=== PATIENT | female | born 1965 | race Caucasian/White ===

== ENCOUNTER → 2022-03-27 14:26 | Outpatient (BNVA) | payer OTHER, SELFPAY | PROVIDERS: PCP Internal Medicine; Visit Provider Nurse Practitioner Family | DX: M54.12 Radiculopathy, cervical region (principal); M54.16 Radiculopathy, lumbar region; M62.838 Other muscle spasm; M47.816 Spondylosis without myelopathy or radiculopathy, lumbar region; M47.812 Spondylosis without myelopathy or radiculopathy, cervical region | CPT/HCPCS: 99202 ==

== ENCOUNTER 2022-12-22 12:55 | Outpatient (REF) | payer OTHER, SELFPAY ==
--- NOTE | ~2022-12-22 | XR_ITS ---
EXAMINATION: XR CERVICAL SPINE CLINICAL INFORMATION: Spondylosis without myelopathy or radiculopathy COMPARISON: None available. TECHNIQUE: 6 views of the cervical spine, inclusive of flexion and extension views, were obtained. FINDINGS: There is mild straightening of the cervical lordosis. The vertebral heights and alignment are normal. There is loss of C4-C5, C5-C6 and C6-C7 disc heights with ventral spondylosis. The craniovertebral junction and the C1-C2 alignment is normal. No visible acute fracture, dislocation or subluxation seen. There is moderate narrowing of left C5-C6 and C6-C7 neural foramina from uncovertebral hypertrophic changes. The prevertebral and paravertebral soft tissues are normal. XR/XR cervical spine min 6V IMPRESSION: Degenerative disc changes C4-C5, C5-C6 and C6-C7 disc levels with ventral spondylosis. No visible acute fracture, dislocation or subluxation seen.
== END 2022-12-22 12:56 | disposition home or self-care (01) ==
LOC: HO.XRAY 12:55
PROVIDERS: PCP Internal Medicine; Visit Provider Nurse Practitioner Family
DX: M47.26 Other spondylosis with radiculopathy, lumbar region (principal); M47.22 Other spondylosis with radiculopathy, cervical region; G56.00 Carpal tunnel syndrome, unspecified upper limb; G89.29 Other chronic pain; M62.838 Other muscle spasm
CPT/HCPCS: 72052; 99212

== ENCOUNTER → 2023-01-19 13:11 | Outpatient (BNVA) | payer OTHER, SELFPAY | PROVIDERS: PCP Internal Medicine; Visit Provider Nurse Practitioner Family | DX: M62.838 Other muscle spasm (principal); M54.12 Radiculopathy, cervical region; M47.816 Spondylosis without myelopathy or radiculopathy, lumbar region; M47.812 Spondylosis without myelopathy or radiculopathy, cervical region; G56.00 Carpal tunnel syndrome, unspecified upper limb | CPT/HCPCS: 99212 ==

== ENCOUNTER 2023-03-14 09:19 | Outpatient (REF) | payer OTHER, SELFPAY ==
--- NOTE | 2023-03-14 09:23 | EMG_ITS ---
Please see scanned EMG / Nerve Conduction Report. MTDD
== END 2023-03-14 09:20 | disposition home or self-care (01) ==
LOC: HO.NEURO 09:19
PROVIDERS: PCP Internal Medicine; Visit Provider Nurse Practitioner Family
DX: G56.03 Carpal tunnel syndrome, bilateral upper limbs (principal)
CPT/HCPCS: 95885; 95910

== ENCOUNTER 2023-03-16 09:10 | Outpatient (AMB) | payer OTHER, SELFPAY ==
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
[2023-03-16 09:12] VITALS: BMI 32.8
== END 2023-03-16 09:11 | disposition home or self-care (01) ==
LOC: HO.PMC 09:11
PROVIDERS: PCP Internal Medicine; Visit Provider Nurse Practitioner Family
DX: M47.812 Spondylosis without myelopathy or radiculopathy, cervical region (principal); M54.12 Radiculopathy, cervical region; M62.838 Other muscle spasm
CPT/HCPCS: 99213

== ENCOUNTER → 2023-03-16 09:10 | Outpatient (BNVA) | payer OTHER, SELFPAY | PROVIDERS: PCP Internal Medicine; Visit Provider Nurse Practitioner Family ==

== ENCOUNTER 2023-10-11 15:22 | Outpatient (AMB) | payer OTHER, SELFPAY ==
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
[2023-10-11 15:28] VITALS: BP 185/93; PULSE 54; O2SAT 97; BMI 32.9
== END 2023-10-11 15:42 | disposition home or self-care (01) ==
PROVIDERS: PCP Internal Medicine; Visit Provider Nurse Practitioner Family
DX: M47.816 Spondylosis without myelopathy or radiculopathy, lumbar region (principal); M54.16 Radiculopathy, lumbar region; M47.812 Spondylosis without myelopathy or radiculopathy, cervical region; M54.12 Radiculopathy, cervical region; M62.838 Other muscle spasm
CPT/HCPCS: 99214

== ENCOUNTER → 2023-10-11 15:22 | Outpatient (BNVA) | payer OTHER, SELFPAY | PROVIDERS: PCP Internal Medicine; Visit Provider Nurse Practitioner Family | DX: M47.816 Spondylosis without myelopathy or radiculopathy, lumbar region (principal); M54.16 Radiculopathy, lumbar region; M47.812 Spondylosis without myelopathy or radiculopathy, cervical region; M54.12 Radiculopathy, cervical region; M62.838 Other muscle spasm | CPT/HCPCS: 99212 ==

== ENCOUNTER 2024-03-17 13:39 | Outpatient (AMB) | payer OTHER, SELFPAY ==
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
[2024-03-17 13:47] VITALS: BP 167/94; PULSE 76; O2SAT 96; BMI 32.8
== END 2024-03-17 14:05 | disposition home or self-care (01) ==
PROVIDERS: PCP Internal Medicine; Visit Provider Nurse Practitioner Family
DX: M53.3 Sacrococcygeal disorders, not elsewhere classified (principal); M47.816 Spondylosis without myelopathy or radiculopathy, lumbar region; M54.16 Radiculopathy, lumbar region; M47.812 Spondylosis without myelopathy or radiculopathy, cervical region; M54.12 Radiculopathy, cervical region; M62.838 Other muscle spasm
CPT/HCPCS: 99214

== ENCOUNTER → 2024-03-17 13:39 | Outpatient (BNVA) | payer OTHER, SELFPAY | PROVIDERS: PCP Internal Medicine; Visit Provider Nurse Practitioner Family | DX: M53.3 Sacrococcygeal disorders, not elsewhere classified (principal); M47.26 Other spondylosis with radiculopathy, lumbar region; M47.22 Other spondylosis with radiculopathy, cervical region; M62.838 Other muscle spasm; G56.00 Carpal tunnel syndrome, unspecified upper limb | CPT/HCPCS: 99212 ==

== ENCOUNTER 2024-10-16 14:28 | Outpatient (REF) | payer OTHER, SELFPAY ==
--- NOTE | ~2024-10-16 | XR_ITS ---
CLINICAL HISTORY: M53.3 - Sacrococcygeal disorders, not elsewhere classified 3 views sacroiliac joints Comparison: None Findings No acute fractures. No significant degenerative change. No erosions. IMPRESSION: No acute findings This document has been electronically signed by: Brian Joseph MD on 10/17/2024 11:13:58
--- OUTSIDE RECORDS SUMMARY | 2024-10-16 17:42 | XMS_ITS | Encounter Summary ---
Author Organization [facility] Address [address] [facility] [place] [address] Care Team Providers Care Chain Forming Machine Operator Name Role Phone Robbie Mckenzie MD Primary Care Provider [phone] Encounter Details Date Type Department Care Team Description 10/11/2023 Tightener Report Medical Records [address] [place] [address] Amy Torres NP Social History Tobacco Use Types Packs/Day Years Used Date Smoking Tobacco: Former Cigarettes 1 35 Smokeless Tobacco: Former Comments:chantix Alcohol Use Standard Drinks/Week Comments Yes 0 (1 standard drink = 0.6 oz pur e alcohol) 1 drink on special occasions Sex Assigned at Date Recorded Not on file Job Start Date Occupation Industry Not on file Not on file Not on file documented as of this encounter Plan of Treatment Not on file documented as of this encounter Visit Diagnoses Not on filedocumented in this encounter Additional Health Concerns Infection Onset Date Last Indicated Resolved Time COVID-19 07/23/2023 07/23/2023 documented as of this encounter Care Teams Chain Forming Machine Operator Relationship Specialty Start Date End Date Robbie Mckenzie MD [address] [place], [place] [phone] PCP - General 05/03/09 documented as of this encounter
--- OUTSIDE RECORDS SUMMARY | 2024-10-16 17:42 | XMS_ITS | Encounter Summary ---
Author Organization [facility] Address [address] [place] [address] Care Team Providers Care Chute Boss Name Role Phone Robbie Mckenzie MD Primary Care Provider [phone] Encounter Details Date Type Department Care Team Description 08/07/2018 Orders Only Medical Records [address] [place] [address] Ap Barrera MD [address] [place] [address] [address] [place] [address] Social History Tobacco Use Types Packs/Day Years [...] on file documented as of this encounter Procedures Procedure Name Priority Date/Time Associated Diagnosis Comments OUTSIDE PLAIN FILM Routine 08/06/2018 documented in this encounter Results * OUTSIDE PLAIN FILM (08/06/2018) Ap Barrera MD RADIOLOGY documented in this encounter Visit Diagnoses Not on filedocumented in this encounter Additional Health Concerns Infection Onset Date Last Indicated Resolved Time COVID-19 07/23/2023 07/23/2023 documented as of this encounter Care Teams Chute Boss Relationship Specialty Start Date End Date Robbie Mckenzie MD [address] [place] [address] PCP - General 05/03/09 documented as of this encounter
--- OUTSIDE RECORDS SUMMARY | 2024-10-16 17:42 | XMS_ITS | Clinical Summary ---
Author Organization [address] Address [address] [place] [phone] Phone Care Team Providers Care Pickle Solution Maker Name Role Phone Robbie Mckenzie MD Primary Care Provider [phone] Allergies No known active allergies Medications cloNIDine (CATAPRES) 0.2 mg tablet Take 1 tablet by mouth twice daily 180 tablet 1 4 Active lisinopril (PRINIVIL,ZESTR IL) 40 mg tablet Take 1 tablet by mouth once daily 90 tablet 1 4 Active celecoxib (CeleBREX) 200 mg capsule TAKE 1 CAPSULE BY MOUTH TWICE DAILY NEEDED FOR PAIN 4 Active cloNIDine (CATAPRES) 0.2 mg tablet Take 1 tablet (0.2 mg total) by mouth 2 (two) times a day. Active gabapentin (NEURONTIN) 300 mg capsule Take 1 capsule (300 mg total) by mouth at bedtime. Active ibuprofen (ADVIL,MOTRIN) 600 mg tablet 4 Active lidocaine (LIDODERM) 5 % patch USE 1 PATCH TOPICALLY ONCE DAILY FOR PAIN. APPLY FOR 12 HOURS ON AND 12 HOURS OFF. 4 Active lisinopril (PRINIVIL,ZESTR IL) 40 mg tablet Take 1 tablet (40 mg total) by mouth 1 (one) time each day. Active simvastatin (ZOCOR) 20 mg tablet Take 1 tablet (20 mg total) by mouth at bedtime. 4 Active tiZANidine (ZANAFLEX) 4 mg tablet Take 1 tablet (4 mg total) by mouth every 8 (eight) hours if needed. 2 Active traMADoL (ULTRAM) 50 mg tablet Take 1 tablet (50 mg total) by mouth every 8 (eight) hours if needed. for pain Max Daily Amount: 150 mg 4 Active triamterene-hyd roCHLOROthiazid e (MAXZIDE) 75-50 mg per tablet Take 1 tablet by mouth 1 (one) time each day. For 180 days 4 10/29/19 25 Active ibuprofen (ADVIL,MOTRIN) 600 mg tablet Take 1 Tablet by mouth every 6 hours as needed for Pain. 4 Active NIRMATRELVIR-RI TONAVIR ORAL Nirmatrelvir&R itonavir 300/100 20 x 150 MG & 10 x 100MG Tablet Therapy Pack 1 Each 0 07/24/2023 Sig - Route: Take 3 Tablets by mouth 2 times daily. - Oral Active predniSONE (DELTASONE) 20 mg tablet Si tabs po x 3 days then 2 tabs po x 3 days then one tab po x 3 days Active Active Problems Problem Noted Date Diagnosed Date Scoliosis 07/22/2024 COVID 07/24/2023 Prediabetes 06/24/2021 Cervical radiculitis 08/19/2020 Chronic back pain 08/19/2020 Hyperlipidemia 06/13/2017 Obesity (BMI 30.0-34.9) 08/27/2014 HTN (hypertension) 07/10/2014 Immunizations Name Administration Dates Next Due Influenza Quadravalent, MDCK , 0.5ml, preservative free (Flucelvax) 6mo and older 06/09/2022,06/24/2021,08/19/2020 Influenza trivalent, with pr eservative (Fluzone; Afluria) 6mo and older 06/26/2014 Tdap Tetanus diptheria acell ular pertussis (Boostrix; Adacel) 7yo and older 11/08/2016 Surgical History Surgery Date Site/Laterality Comments APPENDECTOMY PROCEDURE: HISTORICAL APPENDECTOMY TONSILLECTOMY PROCEDURE: HISTORICAL TONSILLECTOMY WISDOM TOOTH EXTRACTION PROCEDURE: HISTORICAL WISDOM TEETH EXTRACTION Medical History Medical History Date Comments Scoliosis DX:Scoliosis HTN (hypertension) 07/10/2014 DX:HTN (hyper tension) Morbid obesity (CMS/HCC) 08/27/2014 DX:Morb id obesity (HCC) Family History Medical History Relation Name Comments Hypertension Maternal Grandmother Diabetes Mother Stroke Mother Diabetes Sister 1 Hypertension Sister 2 Relation Name Status Comments Maternal Grandmother Mother Sister 1 Sister 2 Social History Tobacco Use Types Packs/Day Years Used Date Smoking Tobacco: Former Cigarettes Smokeless Tobacco: Never Alcohol Use Standard Drinks/Week Comments Yes 0 (1 standard drink = 0.6 oz pur e alcohol) Comments Unknown Sex and Gender Information Value Date Recorded Sex Assigned at Not on file Legal Sex Female 3:26 AM EST Gender Identity Not on file Sexual Orientation Not on file Obstetrics History Last Filed Vital Signs Vital Sign Reading Time Taken Comments Blood Pressure 122/88 05/01/2024 10:56 AM EDT Pulse 76 05/01/2024 10:34 AM EDT Temperature - - Respiratory Rate - - Oxygen Saturation - - Inhaled Oxygen Concentration - - Weight 92.5 kg (203 lb 14.4 oz) 024 10:34 AM EDT Height 167.6 cm (5' 6 ) 05/01/2024 10:3 4 AM EDT Body Mass Index 32.91 05/01/2024 10:34 AM EDT Plan of Treatment Upcoming Encounters Date Type Department Care Team (Late st Contact Info) Description 11/18/2024 3:45 PM EDT Office Visit Adult Medicine [address] [phone] Robbie Mckenzie MD [address] [place] [phone] Health Maintenance Due Date Last Done Comments Breast Cancer Screening 1966 Hepatitis B Vaccines (1 of 3 - 19+ 3-dose series) 1985 Cervical Cancer Screening: Pap Smear 1987 Pneumococcal Vaccine: 50+ Years (1 of 1 - PCV) 2016 Zoster Vaccines (1 of 2) 2016 Colorectal Cancer Screening: Stool Based Tests (FOBT/FIT) 07/29/2022 Depression Screening 07/29/2022 HIV Screening 07/29/2022 Social Influencers of Health Screening 07/29/2022 COVID-19 Vaccine ( season) 2024 06/15/2022, 01/12/2022, 07/11/2021, Additional history exists Influenza Vaccine (#1) 2024 2, 06/24/2021, 08/19/2020, Additional history exists Hypertension/CHF/CAD Annual BMP Blood Test 07/02/2025 07/02/2024, 11/22/2023 DTaP,Tdap,and Td Vaccines (2 - Td or Tdap) 11/08/2026 11/08/2016 Cholesterol Screening (Lipid Panel) 07/02/2029 07/02/2024, 11/22/2023 Hepatitis C Screening Completed 02/07/2018 HIB Vaccines Aged Out No longer eligi ble based on patient's age to complete this topic HPV Vaccines Aged Out No longer eligi ble based on patient's age to complete this topic Hepatitis A Vaccines Aged Out No long er eligible based on patient's age to complete this topic IPV Vaccines Aged Out No longer eligi ble based on patient's age to complete this topic MMR Vaccines Aged Out No longer eligi ble based on patient's age to complete this topic Meningococcal ACWY Vaccine Aged Out N o longer eligible based on patient's age to complete this topic Meningococcal B Vacine Aged Out No lo nger eligible based on patient's age to complete this topic Pneumococcal Vaccine: Pediatrics (0 to 5 Years) and At-Risk Patients (6 to 64 Years) Aged Out No longer eligible based on patient's age to complete this topic RSV Immunization Patients Under 20 months Aged Out No longer eligible based on patient's age to complete this topic Varicella Vaccines Aged Out No longer eligible based on patient's age to complete this topic Procedures Procedure Name Priority Date/Time Associated Diagnosis Comments BASIC METABOLIC PANEL Routine 07/02/2024 4:54 PM EST Pre-diabetes Hyperlipemia Hypertension LIPID PANEL WITH REFLEX TO DIRECT LDL Routine 07/02/2024 4:54 PM EST Pre-diabetes Hyperlipemia Hypertension HM HEPATITIS C SCREENING Routine 02/07/2018 from Last 3 Months or Most Recently Relevant to Health Maintenance Results * (ABNORMAL) Lipid panel with reflex to direct LDL (07/02/2024 4:54 PM EST) Cholesterol 187 0 - 200 mg/dL LAB CHEMISTRY METHOD 07/02/2024 6:57 PM EST [facility] Triglycerides 229(H) 0 - 150 mg/dL LAB CHEMISTRY METHOD 07/02/2024 6:57 PM [facility] HDL 45 >=40 mg/dL LAB CHEMISTRY METHOD 07/02/2024 6:57 PM [facility] LDL Calculated 96 0 - 100 mg/dL LAB CHEMISTRY METHOD 07/02/2024 6:57 PM EST [facility] VLDL Cholesterol Jamaal 45.8 mg/dL LAB CHEMISTRY METHOD 07/02/2024 6:57 PM [facility] Non HDL Chol. (LDL+VLDL) 142 <145 mg/dL LAB CHEMISTRY METHOD 07/02/2024 6:57 PM [facility] Chol/HDL Ratio 4.2 0.0 - 4.4 LAB CHEMISTRY METHOD 07/02/2024 6:57 PM [facility] Blood Venous blood specimen / Unknown Venipuncture / Unknown 07/02/2024 4:54 PM EST 07/02/2024 4:54 PM EST Klaudia HUA LAB BLOOD ORDERABLES Fi nal Result [facility] [address] [place] [address], * (ABNORMAL) Basic metabolic panel (07/02/2024 4:54 PM EST) [facility] Sodium 141 133 - 145 mmol/L LAB CHEMISTRY METHOD 07/02/2024 6:57 PM [facility] Potassium 3.9 3.5 - 5.5 mmol/L LAB CHEMISTRY METHOD 07/02/2024 6:57 PM [facility] Chloride 106 96 - 110 mmol/L LAB CHEMISTRY METHOD 07/02/2024 6:57 PM [facility] CO2 26 21 - 32 mmol/L LAB CHEMISTRY METHOD 07/02/2024 6:57 PM [facility] Anion Gap 9 3 - 11 LAB CHEMISTRY METHOD 07/02/2024 6:57 PM [facility] Glucose 130(H) 70 - 100 mg/dL LAB CHEMISTRY METHOD 07/02/2024 6:57 PM [facility] BUN 12 5 - 25 mg/dL LAB CHEMISTRY METHOD 07/02/2024 6:57 PM [facility] Creatinine 1.03 0.50 - 1.10 mg/dL LAB CHEMISTRY METHOD 07/02/2024 6:57 PM [facility] eGFR 63 >=60 mL/min/1. 73m2 LAB CHEMISTRY METHOD 07/02/2024 6:57 PM [facility] Comment:Calculation based on the??Chronic Kidney Disease Epidemiology Collaboration (CKD-EPI) equation refit??without adjustment for race. BUN/Creatinine Ratio 11.7 LAB CHEMISTRY METHOD 07/02/2024 6:57 PM [facility] Calcium 9.2 8.5 - 10.5 mg/dL LAB CHEMISTRY METHOD 07/02/2024 6:57 PM [facility] Blood Venous blood specimen / Unknown Venipuncture / Unknown 07/02/2024 4:54 PM EST 07/02/2024 4:54 PM EST Klaudia HUA LAB BLOOD ORDERABLES Fi nal Result [facility] [address] [place] [address], * Hepatitis C Screening (02/07/2018) Pathologist [facility] Hepatitis C Screening abstracted Historical Provider HEALTH MAINTENANCE Final Result from Last 3 Months or Most Recently Relevant to Health Maintenance Insurance [facility] Care Teams Pickle Solution Maker Relationship Specialty Start Date End Date Robbie Mckenzie MD PCP - General 05/03/09
--- OUTSIDE RECORDS SUMMARY | 2024-10-16 17:42 | XMS_ITS | Encounter Summary ---
Author Organization [facility] Address [address] [place] [address] Care Team Providers Care In Store Marketing Associate Name Role Phone Robbie Mckenzie MD Primary Care Provider [phone] Encounter Details Date Type Department Care Team Description 01/10/2022 Telephone Adult Medicine [address] [address] Perla Buck PA-C Social History Tobacco Use Types Packs/Day Years Used Date Smoking Tobacco: Former Cigarettes 1 35 Smokeless Tobacco: Former Comments:chantix Alcohol Use Standard Drinks/Week Comments Yes 0 (1 standard drink = 0.6 oz pur e alcohol) 1 drink on special occasions Sex Assigned at Date Recorded Not on file Job Start Date Occupation Industry Not on file Not on file Not on file COVID-19 Exposure Response Date Recorded In the last 10 days, have yo u been in contact with someone who was confirmed or suspected to have Coronavirus/COVID-19? No / Unsure 12/27/2021 3:42 PM EDT documented as of this encounter Miscellaneous Notes * Telephone Encounter - Lara Rodríguez - 01/10/2022 11:34 AM EDT Please see original message dated 12/28/21 Patient returning phone call - can be reached at [phone] documented in this encounter Plan of Treatment Not on file documented as of this encounter Visit Diagnoses Not on filedocumented in this encounter Additional Health Concerns Infection Onset Date Last Indicated Resolved Time COVID-19 07/23/2023 07/23/2023 documented as of this encounter Care Teams In Store Marketing Associate Relationship Specialty Start Date End Date Robbie Mckenzie MD [address] [place] [id number] PCP - General 05/03/09 documented as of this encounter
--- OUTSIDE RECORDS SUMMARY | 2024-10-16 17:42 | XMS_ITS | Encounter Summary ---
Author Organization [facility] Address [address] [place] [address] Care Team Providers Care Stylist Apprentice Name Role Phone Robbie Mckenzie MD Primary Care Provider [phone] Reason for Visit * Reason Onset Date Comments Medication 09/22/2021 Encounter Details Date Type Department Care Team Description 09/22/2021 Refill Gastroenterology - [address] [place] [phone] Jackie Diego MD Medication Social History Tobacco Use Types Packs/Day Years [...] documented as of this encounter Care Teams Stylist Apprentice Relationship Specialty Start Date End Date Robbie Mckenzie MD [address] [place] [address] PCP - General 05/03/09 documented as of this encounter
--- OUTSIDE RECORDS SUMMARY | 2024-10-16 17:42 | XMS_ITS | Encounter Summary ---
Author Organization [facility] Address [address] [place] [address] Care Team Providers Care Escapement Matcher Name Role Phone Robbie Mckenzie MD Primary Care Provider [phone] Reason for Visit * Reason Comments E-prescribe Rx Request Encounter Details Date Type Department Care Team Description 10/13/2020 Refill Adult Medicine [address] [address] Natalie Anderson PA E-prescribe Rx Request Social History Tobacco Use Types Packs/Day Years [...] Exposure Response Date Recorded In the last month, have you been in contact with someone who was confirmed or suspected to have Coronavirus / COVID-19? Unable to assess 09/22/2020 8:52 AM EST documented as of this encounter Miscellaneous Notes * Telephone Encounter - David Becerra C.M.A. - 10/14/2020 10:38 AM EST Script faxed to pharmacy. Message left for patient to return my call, needs appt. * Telephone Encounter - Paulina Tracy PA-C - 10/13/2020 4:05 PM EST Overdue for routine evaluation. Paulina Tracy PA-C * Telephone Encounter - Lila Acevedo - 10/13/2020 3:56 PM EST Ov 08/19/20 Lab Results Component Value Date NA 140 08/19/2020 K 4.2 08/19/2020 CO2 28 08/19/2020 CL 104 08/19/2020 BUN 12 08/19/2020 CREAT 0.94 08/19/2020 GLU 105 08/19/2020 CA 9.4 08/19/2020 GFR > 60 08/19/2020 * Telephone Encounter - Ramya Bañuelos - 10/13/2020 3:27 PM EST Patient would like script to be: E-PRESCRIBED/FAXED TO PHARMACY WHEN WAS THE PATIENT'S LAST APPOINTMENT IN ADULT MEDICINE? 08/19/20 WHEN WAS THE LAST TIME THE PATIENT SAW THEIR PCP? 01/24/19 Does patient have an upcoming appointment? No (THE MEDICATION REQUESTED IS ON THE MED LIST ABOVE) All of the medications requested were on the CURRENT MEDS list Did you check the Pharmacy information above?: YES Patient wants: 90 -day supply Is this a mail order prescription request ? NO If the refill is from a FAXED refill request what is the RX # listed on the fax? N/A Patients current insurance carrier is: Payor: [employer] FFS / Plan: [employer]IANCE / Product Type: MEDICAID RISK documented in this encounter Plan of Treatment Not on file documented as of this encounter Visit Diagnoses Diagnosis Essential hypertension Unspecified essential hypertension documented in this encounter Additional Health Concerns Infection Onset Date Last Indicated Resolved Time COVID-19 07/23/2023 07/23/2023 documented as of this encounter Care Teams Escapement Matcher Relationship Specialty Start Date End Date Robbie Mckenzie MD [address] [place] [id number] PCP - General 05/03/09 documented as of this encounter
--- OUTSIDE RECORDS SUMMARY | 2024-10-16 17:42 | XMS_ITS | Encounter Summary ---
Author Organization [facility] Address [address] [facility] [place] [address] Care Team Providers Care Heating And Refrigeration Inspector Name Role Phone Robbie Mckenzie MD Primary Care Provider [phone] Encounter Details Date Type Department Care Team Description 02/07/2019 Orders Only Adult Medicine [facility] [address] [place] [address] Robbie Mckenzie MD [address] [place] [phone] Elevated blood sugar (Primary Dx) Social History Tobacco Use Types Packs/Day Years [...] as of this encounter Plan of Treatment Scheduled Orders Name Type Priority Associated Diagnoses Orde r Schedule HEMOGLOBIN A1C Lab Routine Elevated blood sugar Expected: 02/07/2019, Expires: 02/07/2020 documented as of this encounter Visit Diagnoses Diagnosis Elevated blood sugar- Primary Other abnormal glucose documented in this encounter Additional Health Concerns Infection Onset Date Last Indicated Resolved Time COVID-19 07/23/2023 07/23/2023 documented as of this encounter Care Teams Heating And Refrigeration Inspector Relationship Specialty Start Date End Date Robbie Mckenzie MD [address] [place] [address] PCP - General 05/03/09 documented as of this encounter
--- OUTSIDE RECORDS SUMMARY | 2024-10-16 17:42 | XMS_ITS | Encounter Summary ---
Author Organization [facility] Address [address] [place] [address] Care Team Providers Care College Intern Name Role Phone Robbie Mckenzie MD Primary Care Provider [phone] Reason for Visit * Reason Onset Date Comments Prior Authorization 01/26/2021 Lyrica Encounter Details Date Type Department Care Team Description 01/26/2021 Pt. Non Urgent Medic al Question Adult Medicine [address] [address] Natalie Anderson PA Social History Tobacco Use Types Packs/Day Years [...] on file documented as of this encounter Miscellaneous Notes * Telephone Encounter - Meli Perez M.A. - 01/26/2021 10:11 AM EDTFrom: James Wetzel Jovanny To: Rachael Sexton Sent: 01/26/2021 10:04 AM EDT Subject: Medication Good morning Natalie, The Lyrica you prescribed for me still hasn't come through, I called the pharmacy and they said they had to get prior approval from my Dr, not sure what that means, but anyway, if there's anything you can do on your end I would really appreciate it, my back has gotten much worse, now I'm needing help getting in a nd out of bed, and help sitting up, I'm worried and the muscle relaxers aren't doingmuch but help me sleep, anyway thanks a bunch. documented in this encounter Plan of Treatment Not on file documented as of this encounter Visit Diagnoses Not on filedocumented in this encounter Additional Health Concerns Infection Onset Date Last Indicated Resolved Time COVID-19 07/23/2023 07/23/2023 documented as of this encounter Care Teams College Intern Relationship Specialty Start Date End Date Robbie Mckenzie MD [address] [place] [address] PCP - General 05/03/09 documented as of this encounter
--- OUTSIDE RECORDS SUMMARY | 2024-10-16 17:42 | XMS_ITS | Encounter Summary ---
Author Organization [facility] Address [address] [facility] [place] [address] Care Team Providers Care Quill Stripper Name Role Phone Robbie Mckenzie MD Primary Care Provider [phone] Encounter Details Date Type Department Care Team Description 11/22/2023 Release of Information Medical Records [address] [place] [id number] Abstract, Provider Social History Tobacco Use Types Packs/Day Years Used Date Smoking Tobacco: Former Cigarettes 1 35 Smokeless Tobacco: Never Comments:chantix Alcohol Use Standard Drinks/Week Comments Yes [...] documented as of this encounter Care Teams Quill Stripper Relationship Specialty Start Date End Date Robbie Mckenzie MD [address] [place], [place] [phone] PCP - General 05/03/09 documented as of this encounter
--- OUTSIDE RECORDS SUMMARY | 2024-10-16 17:42 | XMS_ITS | Encounter Summary ---
Author Organization [facility] Address [address] [facility] [place] [address] Care Team Providers Care Coconut Candy Maker Name Role Phone Robbie Mckenzie MD Primary Care Provider [phone] Encounter Details Date Type Department Care Team Description 09/11/2018 Release of Information Medical Records [address] [place] [id number] Abstract, Provider Social History Tobacco Use Types [...] documented as of this encounter Care Teams Coconut Candy Maker Relationship Specialty Start Date End Date Robbie Mckenzie MD [address] [place], [place] [phone] PCP - General 05/03/09 documented as of this encounter
--- OUTSIDE RECORDS SUMMARY | 2024-10-16 17:42 | XMS_ITS | Encounter Summary ---
Author Organization [facility] Address [address] [place] [address] Care Team Providers Care Kettle Cook Name Role Phone Robbie Mckenzie MD Primary Care Provider [phone] Encounter Details Date Type Department Care Team Description 03/23/2020 Emt Intermediate Report Medical Records [address] [place] [address] Abstract, Provider Social History Tobacco Use Types [...] documented as of this encounter Care Teams Kettle Cook Relationship Specialty Start Date End Date Robbie Mckenzie MD [address] [place], [place] [phone] PCP - General 05/03/09 documented as of this encounter
--- OUTSIDE RECORDS SUMMARY | 2024-10-16 17:43 | XMS_ITS | Encounter Summary ---
Author Organization [facility] Address [address] [place] [address] Care Team Providers Care Rug Weaver Name Role Phone Robbie Mckenzie MD Primary Care Provider [phone] Reason for Visit * Reason Comments E-prescribe Rx Request Encounter Details Date Type Department Care Team Description 01/16/2022 Refill Adult Medicine [address] [id number] Perla Buck PA-C E-prescribe Rx Request Social History Tobacco Use [...] Recorded In the last 10 days, have tree melara been in contact with someone who was confirmed or suspected to have Coronavirus/COVID-19? No / Unsure 12/27/2021 3:42 PM EDT documented as of this encounter Plan of Treatment Not on file documented as of this encounter Visit Diagnoses Not on filedocumented in this encounter Additional Health Concerns Infection Onset Date Last Indicated Resolved Time COVID-19 07/23/2023 07/23/2023 documented as of this encounter Care Teams Rug Weaver Relationship Specialty Start Date End Date Robbie Mckenzie MD [address] [place] [phone] PCP - General 05/03/09 documented as of this encounter
--- OUTSIDE RECORDS SUMMARY | 2024-10-16 17:43 | XMS_ITS | Encounter Summary ---
Author Organization [facility] Address [address] [facility] [place] [address] Care Team Providers Care Tearoom Host/Hostess Name Role Phone Robbie Mckenzie MD Primary Care Provider [phone] Encounter Details Date Type Department Care Team Description 07/17/2018 Transfer Records Medical Records [address] [place] [address] Abstract, Provider Social History Tobacco Use Types Packs/Day Years Used Date Smoking Tobacco: Every Day Cigarettes 1 35 Smokeless Tobacco: Current Comments:chantix Alcohol Use Standard Drinks/Week Comments Yes [...] documented as of this encounter Care Teams Tearoom Host/Hostess Relationship Specialty Start Date End Date Robbie Mckenzie MD [address] [place], [place] [phone] PCP - General 05/03/09 documented as of this encounter
--- OUTSIDE RECORDS SUMMARY | 2024-10-16 17:43 | XMS_ITS | Encounter Summary ---
Author Organization [facility] Address [address] [facility] [place] [address] Care Team Providers Care It Specialist Name Role Phone Robbie Mckenzie MD Primary Care Provider Encounter Details Date Type Department Care Team Description 03/01/2022 Release of Information Medical Records [address] [place] [address] [place] [address] Abstract, Provider Social History Tobacco Use Types [...] documented as of this encounter Care Teams It Specialist Relationship Specialty Start Date End Date Robbie Mckenzie MD [address] [place], [place] [phone] PCP - General 05/03/09 documented as of this encounter
== END 2024-10-16 14:29 | disposition home or self-care (01) ==
LOC: HO.XRAY 14:28
PROVIDERS: PCP Internal Medicine; Visit Provider Nurse Practitioner Family
DX: M47.816 Spondylosis without myelopathy or radiculopathy, lumbar region (principal); M53.3 Sacrococcygeal disorders, not elsewhere classified; M62.838 Other muscle spasm; M54.50 Low back pain, unspecified; M47.812 Spondylosis without myelopathy or radiculopathy, cervical region; G89.29 Other chronic pain
CPT/HCPCS: 72202; 99212

== ENCOUNTER → 2024-10-16 14:33 | Outpatient (BNV) | payer OTHER, SELFPAY | PROVIDERS: PCP Internal Medicine; Visit Provider Radiology Diagnostic Radiology | DX: M53.3 Sacrococcygeal disorders, not elsewhere classified (principal) | CPT/HCPCS: 72202 ==

== ENCOUNTER 2024-10-16 15:23 | Outpatient (AMB) | payer OTHER, SELFPAY ==
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
[2024-10-16 15:28] VITALS: BP 180/98; PULSE 80; O2SAT 97; BMI 33.2
[2024-10-16 15:48] VITALS: BP 136/101
--- OUTSIDE RECORDS SUMMARY | 2024-10-16 18:43 | XMS_ITS | Clinical Summary ---
Author Organization [address] Address [address] [place] [phone] Phone Care Team Providers Care Stereo Compiler Name Role Phone Robbie Mckenzie MD Primary Care Provider [phone] Allergies No known active allergies Medications cloNIDine [...] 3:45 PM EDT Office Visit Adult Medicine [address] [phone] Robbie Mckenzie MD [address] [place] [phone] Health Maintenance Due Date Last Done Comments [...] LAB CHEMISTRY METHOD 07/02/2024 6:57 PM EST [facility] Triglycerides 229(H) 0 - 150 mg/dL LAB CHEMISTRY METHOD 07/02/2024 6:57 PM [facility] HDL 45 >=40 mg/dL LAB CHEMISTRY METHOD 07/02/2024 6:57 PM [facility] LDL Calculated 96 0 - 100 mg/dL LAB CHEMISTRY METHOD 07/02/2024 6:57 PM EST [facility] VLDL Cholesterol Jamaal 45.8 mg/dL LAB CHEMISTRY METHOD 07/02/2024 6:57 PM [facility] Non HDL Chol. (LDL+VLDL) 142 <145 mg/dL LAB CHEMISTRY METHOD 07/02/2024 6:57 PM [facility] Chol/HDL Ratio 4.2 0.0 - 4.4 LAB CHEMISTRY METHOD 07/02/2024 6:57 PM [facility] Blood Venous blood specimen / Unknown Venipuncture / Unknown 07/02/2024 4:54 PM EST 07/02/2024 4:54 PM EST Klaudia HUA LAB BLOOD ORDERABLES Fi nal Result [facility] [address] [place] [address], * (ABNORMAL) Basic metabolic panel (07/02/2024 4:54 PM EST) [facility] Sodium 141 133 - 145 mmol/L LAB CHEMISTRY METHOD 07/02/2024 6:57 PM [facility] Potassium 3.9 3.5 - 5.5 mmol/L LAB CHEMISTRY METHOD 07/02/2024 6:57 PM [facility] Chloride 106 96 - 110 mmol/L LAB CHEMISTRY METHOD 07/02/2024 6:57 PM [facility] CO2 26 21 - 32 mmol/L LAB CHEMISTRY METHOD 07/02/2024 6:57 PM [facility] Anion Gap 9 3 - 11 LAB CHEMISTRY METHOD 07/02/2024 6:57 PM [facility] Glucose 130(H) 70 - 100 mg/dL LAB CHEMISTRY METHOD 07/02/2024 6:57 PM [facility] BUN 12 5 - 25 mg/dL LAB CHEMISTRY METHOD 07/02/2024 6:57 PM [facility] Creatinine 1.03 0.50 - 1.10 mg/dL LAB CHEMISTRY METHOD 07/02/2024 6:57 PM [facility] eGFR 63 >=60 mL/min/1. 73m2 LAB CHEMISTRY METHOD 07/02/2024 6:57 PM [facility] Comment:Calculation based on the??Chronic Kidney Disease Epidemiology Collaboration (CKD-EPI) equation refit??without adjustment for race. BUN/Creatinine Ratio 11.7 LAB CHEMISTRY METHOD 07/02/2024 6:57 PM [facility] Calcium 9.2 8.5 - 10.5 mg/dL LAB CHEMISTRY METHOD 07/02/2024 6:57 PM [facility] Blood Venous blood specimen / Unknown Venipuncture / Unknown 07/02/2024 4:54 PM EST 07/02/2024 4:54 PM EST Klaudia HUA LAB BLOOD ORDERABLES Fi nal Result [facility] [address] [place] [address], * Hepatitis C Screening (02/07/2018) Pathologist [facility] Hepatitis C Screening abstracted Historical Provider HEALTH MAINTENANCE Final Result from Last 3 Months or Most Recently Relevant to Health Maintenance Insurance [facility] [employer] Care Teams Stereo Compiler Relationship Specialty Start Date End Date Robbie Mckenzie MD PCP - General 05/03/09
== END 2024-10-16 15:47 | disposition home or self-care (01) ==
PROVIDERS: PCP Internal Medicine; Visit Provider Nurse Practitioner Family
DX: M47.816 Spondylosis without myelopathy or radiculopathy, lumbar region (principal); M53.3 Sacrococcygeal disorders, not elsewhere classified; M62.838 Other muscle spasm; M54.50 Low back pain, unspecified; G89.29 Other chronic pain; M47.812 Spondylosis without myelopathy or radiculopathy, cervical region
CPT/HCPCS: 99214; G2211

== ENCOUNTER 2025-03-13 14:57 | Outpatient (AMB) | payer OTHER, SELFPAY ==
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
--- OUTSIDE RECORDS SUMMARY | 2025-03-13 14:59 | XMS_ITS | Clinical Summary ---
Author Organization [address] Address [address] [place], [place] [address] [address] Phone Care Team Providers Care Treasury Assistant Name Role Phone Robbie Mckenzie MD Primary Care Provider [phone] Allergies No known active allergies Medications celecoxib (CeleBREX) 200 mg capsule TAKE 1 CAPSULE BY MOUTH TWICE DAILY NEEDED FOR PAIN 4 Active gabapentin (NEURONTIN) 300 mg capsule Take 1 capsule (300 mg total) by mouth at bedtime. Active lidocaine (LIDODERM) 5 % patch USE 1 PATCH TOPICALLY ONCE DAILY FOR PAIN. APPLY FOR 12 HOURS ON AND 12 HOURS OFF. 4 Active tiZANidine (ZANAFLEX) 4 mg tablet Take 1 tablet (4 mg total) by mouth every 8 (eight) hours if needed. 2 Active triamterene-hyd roCHLOROthiazid e (MAXZIDE) 75-50 mg per tablet Take 1 tablet by mouth 1 (one) time each day. For 180 days 30 each 6 5 06/07/20 25 Active amLODIPine (NORVASC) 5 mg tablet Take 1 tablet (5 mg total) by mouth 1 (one) time each day. 90 tablet 5 12/11/19 26 Active aspirin 81 mg EC tablet Take 1 tablet (81 mg total) by mouth 1 (one) time each day. Active cloNIDine (CATAPRES) 0.2 mg tablet Take 1 tablet (0.2 mg total) by mouth 1 (one) time each day. 90 tablet 1 5 Active simvastatin (ZOCOR) 20 mg tablet TAKE 1 TABLET BY MOUTH AT BEDTIME 90 tablet 1 5 Active lisinopril (PRINIVIL,ZESTR IL) 40 mg tablet Take 1 tablet by mouth once daily 90 tablet 1 5 Active Active Problems Problem Noted Date Diagnosed [...] (hypertension) 07/10/2014 DX:HTN (hyper tension) Morbid obesity (CMS/HCC V24, CMS/HCC V28) 08/27/19 15 DX:Morbid obesity (HCC) Family History Medical History Relation Name Comments Hypertension Maternal Grandmother Diabetes Mother Stroke Mother Diabetes Sister 1 Hypertension Sister 2 Relation Name Status Comments Maternal Grandmother Mother Sister 1 Sister 2 Social History Tobacco Use Types Packs/Day Years Used Date Smoking Tobacco: Former Cigarettes Smokeless Tobacco: Never Tobacco Cessation:Counseling Given: Not Answered Alcohol Use Standard Drinks/Week Comments Yes 0 (1 standard drink = 0.6 oz pur e alcohol) Comments No Sex and Gender Information Value Date Recorded Sex Assigned at Not on file Legal Sex Female 3:26 AM EST Gender Identity Not on file Sexual Orientation Not on file Obstetrics History Last Filed Vital Signs Vital Sign Reading Time Taken Comments Blood Pressure 146/98 01/06/2025 2:02 PM EDT Pulse 65 11/18/2024 4:14 PM EDT Temperature 36.7 C (98 F) 11/18/2024 3:53 PM EDT Respiratory Rate 14 11/18/2024 3:53 PM EDT Oxygen Saturation 97% 11/18/2024 3:53 PM EDT Inhaled Oxygen Concentration - - Weight 92.5 kg (204 lb) 11/18/2024 3:53 PM EDT Height 167.6 cm (5' 6 ) 11/18/2024 3:53 PM EDT Body Mass Index 32.93 11/18/2024 3:53 PM EDT Plan of Treatment Upcoming Encounters Date Type Department Care Team (Late st Contact Info) Description 04/08/2025 3:30 PM EDT Medication Management Adult Medicine [address] [phone] Olya Peralta, PharmD [address] [place] [address] 05/29/2025 4:30 PM EDT Office Visit Adult Medicine [address] [phone] Robbie Mckenzie MD [address] [place] [address] [phone] Health Maintenance Due Date Last Done Comments Breast Cancer Screening 1966 Hepatitis B Vaccines (1 of 3 - 19+ 3-dose series) 1985 Cervical Cancer Screening: Pap Smear 1987 Pneumococcal Vaccine: 50+ Years (1 of 1 - PCV) 2016 Zoster Vaccines (1 of 2) 2016 Colorectal Cancer Screening: Stool Based Tests (FOBT/FIT) 07/29/2022 HIV Screening 07/29/2022 Social Influencers of Health Screening 07/29/2022 COVID-19 Vaccine ( season) 2024 06/15/2022, 01/12/2022, 07/11/2021, Additional history exists Influenza Vaccine (#1) 2025 2, 06/24/2021, 08/19/2020, Additional history exists Hypertension/CHF/CAD Annual BMP Blood Test 11/18/2025 11/18/2024, 07/02/2024, 11/22/2023 DTaP,Tdap,and Td Vaccines (2 - Td or Tdap) 11/08/2026 11/08/2016 Cholesterol Screening (Lipid Panel) 11/18/2029 11/18/2024, 07/02/2024, 11/22/2023 Hepatitis C Screening Completed 02/07/2018 Depression Screening Completed 01/06/2025 HIB Vaccines Aged Out No longer eligi [...] age to complete this topic Meningococcal B Vaccine Aged Out No l onger eligible based on patient's age to complete this topic RSV Immunization Patients Under 20 months Aged Out No longer eligible based on patient's age to complete this topic Varicella Vaccines Aged Out No longer eligible based on patient's age to complete this topic Procedures Procedure Name Priority Date/Time Associated Diagnosis Comments COMPREHENSIVE METABOLIC PANEL Routine 11/18/2024 4:39 PM EDT Primary hypertension Encounter for long-term (current) use of medications LIPID PANEL WITH REFLEX TO DIRECT LDL Routine 11/18/2024 4:39 PM EDT Pure hypercholesterolemia HEPATITIS C SCREENING Routine 02/07/2018 from Last 3 Months or Most Recently Relevant to Health Maintenance Results * (ABNORMAL) Lipid panel with reflex to direct LDL (11/18/2024 4:39 PM EDT) [facility] Cholesterol 205(H) 0 - 200 mg/dL LAB CHEMISTRY METHOD 11/18/2024 8:04 PM EDT [facility] Triglycerides 196(H) 0 - 150 mg/dL LAB CHEMISTRY METHOD 11/18/2024 8:04 PM EDT [facility] HDL 51 >=40 mg/dL LAB CHEMISTRY METHOD 11/18/2024 8:04 PM EDT [facility] LDL Calculated 115(H) 0 - 100 mg/dL LAB CHEMISTRY METHOD 11/18/2024 8:04 PM EDT [facility] VLDL Cholesterol Jamaal 39.2 mg/dL LAB CHEMISTRY METHOD 11/18/2024 8:04 PM EDT [facility] Non HDL Chol. (LDL+VLDL) 154(H) <145 mg/dL LAB CHEMISTRY METHOD 11/18/2024 8:04 PM EDT [facility] Chol/HDL Ratio 4.0 0.0 - 4.4 LAB CHEMISTRY METHOD 11/18/2024 8:04 PM EDT [facility] Blood Venous blood specimen / Unknown Venipuncture / Unknown 11/18/2024 4:39 PM EDT 11/18/2024 4:39 PM EDT us Robbie Mckenzie MD LAB BLOOD ORDERABLES Final Resu lt [facility] [address] [place] [address], * (ABNORMAL) Comprehensive metabolic panel (11/18/2024 4:39 PM EDT) Sodium 142 133 - 145 mmol/L LAB CHEMISTRY METHOD 11/18/2024 8:04 PM EDT [facility] Potassium 4.1 3.5 - 5.5 mmol/L LAB CHEMISTRY METHOD 11/18/2024 8:04 PM EDT [facility] Chloride 107 96 - 110 mmol/L LAB CHEMISTRY METHOD 11/18/2024 8:04 PM EDT [facility] CO2 25 21 - 32 mmol/L LAB CHEMISTRY METHOD 11/18/2024 8:04 PM [facility] Anion Gap 10 3 - 11 LAB CHEMISTRY METHOD 11/18/2024 8:04 PM [facility] Glucose 103(H) 70 - 100 mg/dL LAB CHEMISTRY METHOD 11/18/2024 8:04 PM [facility] BUN 12 5 - 25 mg/dL LAB CHEMISTRY METHOD 11/18/2024 8:04 PM [facility] Creatinine 0.83 0.50 - 1.10 mg/dL LAB CHEMISTRY METHOD 11/18/2024 8:04 PM [facility] eGFR 82 >=60 mL/min/1. 73m2 LAB CHEMISTRY METHOD 11/18/2024 8:04 PM [facility] Comment:Calculation based on the Chronic Kidney Disease Epidemiology Collaboration (CKD-EPI) equation refit without adjustment for race. BUN/Creatinine Ratio 14.5 LAB CHEMISTRY METHOD 11/18/2024 8:04 PM [facility] Calcium 9.9 8.5 - 10.5 mg/dL LAB CHEMISTRY METHOD 11/18/2024 8:04 PM [facility] AST (SGOT) 19 10 - 42 unit/L LAB CHEMISTRY METHOD 11/18/2024 8:04 PM [facility] ALT (SGPT) 20 10 - 60 unit/L LAB CHEMISTRY METHOD 11/18/2024 8:04 PM [facility] Alkaline Phosphatase 115 42 - 121 unit/L LAB CHEMISTRY METHOD 11/18/2024 8:04 PM [facility] Total Protein 7.7 6.0 - 8.0 g/dL LAB CHEMISTRY METHOD 11/18/2024 8:04 PM [facility] Albumin 4.1 3.2 - 5.0 g/dL LAB CHEMISTRY METHOD 11/18/2024 8:04 PM [facility] Total Bilirubin 0.7 0.0 - 1.4 mg/dL LAB CHEMISTRY METHOD 11/18/2024 8:04 PM EDT [facility] Blood Venous blood specimen / Unknown Venipuncture / Unknown 11/18/2024 4:39 PM EDT 11/18/2024 4:39 PM EDT Robbie Mckenzie MD LAB BLOOD ORDERABLES Final Resu lt [facility] [address] [place] [address], * Hepatitis C Screening (02/07/2018) Pathologist [facility] Hepatitis C Screening abstracted us Historical Provider HEALTH MAINTENANCE Final Result from Last 3 Months or Most Recently Relevant to Health Maintenance Insurance [facility] Care Teams Treasury Assistant Relationship Specialty Start Date End Date Robbie Mckenzie MD [address] [place] [id number] PCP - General 05/03/09
[2025-03-13 15:00] VITALS: BP 141/82; PULSE 79; O2SAT 98
== END 2025-03-13 15:13 | disposition home or self-care (01) ==
LOC: HO.PMC 14:57
PROVIDERS: PCP Internal Medicine; Visit Provider Nurse Practitioner Family
DX: M47.812 Spondylosis without myelopathy or radiculopathy, cervical region (principal); M47.816 Spondylosis without myelopathy or radiculopathy, lumbar region; M53.3 Sacrococcygeal disorders, not elsewhere classified; M54.50 Low back pain, unspecified; G89.29 Other chronic pain; M54.12 Radiculopathy, cervical region
CPT/HCPCS: 99214; G2211

== ENCOUNTER → 2025-03-13 14:57 | Outpatient (BNVA) | payer OTHER, SELFPAY | PROVIDERS: PCP Internal Medicine; Visit Provider Nurse Practitioner Family | DX: M47.812 Spondylosis without myelopathy or radiculopathy, cervical region (principal); M47.816 Spondylosis without myelopathy or radiculopathy, lumbar region; M53.3 Sacrococcygeal disorders, not elsewhere classified; M54.50 Low back pain, unspecified; M54.12 Radiculopathy, cervical region; G89.29 Other chronic pain | CPT/HCPCS: 99212 ==

== ENCOUNTER 2025-07-23 16:02 | Outpatient (AMB) | payer OTHER, SELFPAY ==
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
[2025-07-23 16:07] VITALS: BP 140/81; PULSE 95; O2SAT 100; BMI 30.7
--- OUTSIDE RECORDS SUMMARY | 2025-07-23 22:05 | XMS_ITS ---
Author Name [facility] Organization Unknown Care Team Organization Name Specialty Phone Email Start Date End Da te [facility] NATY PIERSON Primary Care 06/27/2022 4
--- OUTSIDE RECORDS SUMMARY | 2025-07-23 22:05 | XMS_ITS | Clinical Summary ---
Author Organization [address] Address [address] [place], [place] [address], [place] [address] Phone Care Team Providers Care Installation Service Representative Name Role Phone Robbie Mckenzie MD Primary Care Provider [phone] Allergies No known active allergies Medications celecoxib (CeleBREX) 200 mg capsule TAKE 1 CAPSULE BY MOUTH TWICE DAILY NEEDED FOR PAIN 04/19/20 24 Active gabapentin (NEURONTIN) 300 mg capsule Take 1 capsule (300 mg total) by mouth at bedtime. Active lidocaine (LIDODERM) 5 % patch USE 1 PATCH TOPICALLY ONCE DAILY FOR PAIN. APPLY FOR 12 HOURS ON AND 12 HOURS OFF. 04/19/20 24 Active tiZANidine (ZANAFLEX) 4 mg tablet Take 1 tablet (4 mg total) by mouth every 8 (eight) hours if needed. 06/08/20 22 Active triamterene-hy droCHLOROthiaz ra (MAXZIDE) 75-50 mg per tablet Take 1 tablet by mouth 1 (one) time each day. For 180 days 30 each 6 11/19/19 25 Active aspirin 81 mg EC tablet Take 1 tablet (81 mg total) by mouth 1 (one) time each day. Active cloNIDine (CATAPRES) 0.2 mg tablet Take 1 tablet (0.2 mg total) by mouth 1 (one) time each day. 90 tablet 1 01/07/20 25 Active amLODIPine (NORVASC) 5 mg tablet Take 1 tablet by mouth once daily 90 tablet 1 03/24/20 25 Active naproxen (EC NAPROSYN) 500 mg EC tablet Take 1 tablet twice a day for 14 days. Take with food 28 tablet 05/22/20 25 Active simvastatin (ZOCOR) 20 mg tablet TAKE 1 TABLET BY MOUTH AT BEDTIME 90 tablet 07/07/20 25 Active lisinopril (PRINIVIL,ZEST RIL) 40 mg tablet Take 1 tablet by mouth once daily 90 tablet 07/07/20 25 Active simvastatin (ZOCOR) 20 mg tablet TAKE 1 TABLET BY MOUTH AT BEDTIME 90 tablet 1 01/10/20 25 025 Discontinued lisinopril (PRINIVIL,ZEST RIL) 40 mg tablet Take 1 tablet by mouth once daily 90 tablet 1 01/10/20 25 025 Discontinued Active Problems Problem Noted Date Diagnosed Date Scoliosis 07/22/2024 COVID 07/24/2023 Prediabetes 06/24/2021 Cervical radiculitis 08/19/2020 Chronic back pain 08/19/2020 Hyperlipidemia 06/13/2017 Obesity (BMI 30.0-34.9) 08/27/2014 HTN (hypertension) 07/10/2014 Encounters Date Type Department Care Team Description 05/26/2025 Results [facility]Up [facility] [address] [place] [address] Claudio Parra NP 05/22/2025 6:00 PM EDT Office Visit [facility] - [address] [place] [address] Daniel Roque NP Hand pain, left (Primary Dx); Acute pain of left knee 05/22/2025 5:56 PM EDT - 05/22/2025 11:59 PM EDT [facility] [place] [address] Hand pain, left Discharge Disposition: Home or Self Care 05/22/2025 5:56 PM EDT - 05/22/2025 11:59 PM EDT [facility] [place] [address] Acute pain of left knee Discharge Disposition: Home or Self Care 05/22/2025 Nurse Triage Adult Medicine [address] [phone] Robbie Mckenzie MD from Last 3 Months Immunizations Immunization Administration Dates Next Due Influenza Quadravalent, MDCK [...] drink = 0.6 oz pur e alcohol) Housing Instability Answer Date Recorde d Are you worried that in the next 2 months you may not have stable housing? No 05/22/2025 Food Access & Nutrition Answer Date Rec orded Do you have access to a vari ety of food including fruits and vegetables? Yes 05/22/2025 Access to Healthcare Answer Date Record ed Within the last 3 months, ho w many times did you visit the emergency department for your medical care? 0 05/22/2025 Health Literacy Answer Date Recorded How often do you need to hav e someone help you when you read instructions, pamphlets, or other written material from your doctor or pharmacy? Never 05/22/2025 Caregiver: How often do you need to have someone help you when you read instructions, pamphlets, or other written material from your doctor or pharmacy? Not on file 05/22/2025 Financial Risk Answer Date Recorded How hard is it for you to pa y for the very basics like food, housing, medical care, and air conditioning / heating? Somewhat hard 05/22/2025 Transportation Answer Date Recorded Has the lack of transportati on kept you from meetings, work, or from getting things needed for daily living? No Has the lack of transportati on kept you from medical appointments or from getting medications? No 05/22/2025 Social Isolation Answer Date Recorded How often do you feel lonely or isolated from th ose around you? Rarely 05/22/2025 Food Risk Answer Date Recorded Within the past 12 months we worried whether our food would run out before we got money to buy more. Never true 05/22/2025 Within the past 12 months th e food we bought just didn't last and we didn't have money to get more. Never true 05/22/2025 Dependent Care Answer Date Recorded Do you need help finding or paying for care for your loved ones. For example, child care counselor or elderly care for an older adult? No 05/22/2025 Education Answer Date Recorded Do you think completing more education or training, like finishing a GED, going to college, or learning a trade, would be helpful for you? N/A 05/22/2025 Employment and Income Answer Date Recor ded During the last four weeks, have you been actively looking for work? No 05/22/2025 Living Situation Answer Date Recorded What is your living situation? Unrecognized valu e 05/22/2025 Comments No Sex and Gender Information Value Date Recorded Sex Assigned at Not on file Legal Sex Female 3:26 AM EST Gender Identity Not on file Sexual Orientation Not on file Obstetrics History Last Filed Vital Signs Vital Sign Reading Time Taken Comments Blood Pressure 145/89 05/22/2025 5:50 PM EDT Pulse 55 05/22/2025 5:50 PM EDT Temperature 36.3 C (97.3 F) 05/22/2025 5:50 PM EDT Respiratory Rate 14 11/18/2024 3:53 PM EDT Oxygen Saturation 97% 05/22/2025 5:50 PM EDT Inhaled Oxygen Concentration - - Weight 92.5 kg (204 lb) 11/18/2024 3:53 PM EDT Height 167.6 cm (5' 6 ) 11/18/2024 3:53 PM EDT Body Mass Index 32.93 11/18/2024 3:53 PM EDT Plan of Treatment Upcoming Encounters Date Type Department Care Team (Late st Contact Info) Description 08/03/2025 3:00 PM EST Office Visit Adult Medicine [address] [address] Robbie Mckenzie MD [address] [place] [address] 09/02/2025 3:30 PM EST Medication Management Adult Medicine [address] [phone] Olya Peralta PharmD [address] [place] [address] [id number] Health Maintenance Due Date Last Done Comments Breast Cancer Screening 1966 Hepatitis B Vaccines (1 of 3 - 19+ 3-dose series) 1985 Cervical Cancer Screening: Pap Smear 1987 Pneumococcal Vaccine: 50+ Years (1 of 1 - PCV) 2016 Zoster Vaccines (1 of 2) 2016 Colorectal Cancer Screening: Stool Based Tests (FOBT/FIT) 07/29/2022 HIV Screening 07/29/2022 COVID-19 Vaccine ( season) 2025 06/15/2022, 01/12/2022, 07/11/2021, Additional history exists Influenza Vaccine (#1) 2025 , 06/24/2021, 08/19/2020, Additional history exists Hypertension/CHF/CAD Annual BMP Blood Test 11/18/2025 11/18/2024, 07/02/2024, 11/22/2023 Social Influencers of Health Screening 05/22/2026 05/22/2025 DTaP,Tdap,and Td Vaccines (2 - Td or Tdap) 11/08/2026 11/08/2016 Cholesterol Screening (Lipid Panel) 11/18/2029 11/18/2024, 07/02/2024, 11/22/2023 RSV Immunization Adult Patients (1 - 1-dose 75+ series) 2041 Hepatitis C Screening Completed 02/07/2018 Depression Screening [...] Procedure Name Priority Date/Time Associated Diagnosis Comments XR KNEE 4+ VIEWS LEFT STAT 05/22/2025 6:11 PM EDT Acute pain of left knee XR HAND 3+ VIEWS LEFT STAT 05/22/2025 6:10 PM EDT Hand pain, left COMPREHENSIVE METABOLIC PANEL Routine 11/18/2024 4:39 PM EDT Primary hypertension Encounter for long-term (current) use of medications LIPID PANEL WITH REFLEX TO DIRECT LDL Routine 11/18/2024 4:39 PM EDT Pure hypercholesterolemia HEPATITIS C SCREENING Routine 02/07/2018 from Last 3 Months or Most Recently Relevant to Health Maintenance Results * XR Knee 4+ Views Left (05/22/2025 6:11 PM EDT) Anatomical Region Laterality Modality Lower Extremities, Knee Left Radiogra phic Imaging 05/25/2025 7:25 AM EDT Impressions 05/25/2025 7:29 AM EDT No acute fracture or malalignment detected. -------- FINAL REPORT -------- Dictated By: Emilia Freeman Dictated Date: 05/25/2025 07:25 ET Assigned Physician: Emilia Freeman Reviewed and Electronically Signed By: Emilia Freeman Signed Date: 05/25/2025 07:29 ET Workstation ID: [id number] Transcribed By: Self Edit Transcribed Date: 05/25/2025 07:25 ET Narrative 05/25/2025 7:29 AM EDT EXAM: Left knee x-ray HISTORY: Pain at patella after a fall. COMPARISON: None VIEWS: 6 views performed. FINDINGS: No acute fracture or malalignment detected. Mild joint space narrowing at the patellofemoral joint. No destructive bone lesion. No significant joint effusion. Procedure Note Emilia Freeman MD - 05/25/2025 EXAM: Left knee x-ray HISTORY: Pain at patella after a fall. COMPARISON: None VIEWS: 6 views performed. FINDINGS: No acute fracture or malalignment detected. Mild joint space narrowing atthe patellofemoral joint. No destructive bone lesion. No significant jointeffusion. IMPRESSION: No acute fracture or malalignment detected. -------- FINAL REPORT -------- Dictated By: Emilia Freeman Dictated Date: 05/25/2025 07:25 ET Assigned Physician: Emilia Freeman Reviewed and Electronically Signed By: Emilia Freeman Signed Date: 05/25/2025 07:29 ET Workstation ID: [id number] Transcribed By: Self Edit Transcribed Date: 05/25/2025 07:25 ET us Daniel Roque NP IMG XR PROCEDURES Final Resul t * XR Hand 3+ Views Left (05/22/2025 6:10 PM EDT) Anatomical Region Laterality Modality Upper Extremities, Hand Left Radiogra phic Imaging 05/25/2025 7:21 AM EDT Impressions 05/25/2025 7:25 AM EDT No acute fracture or malalignment detected. -------- FINAL REPORT -------- Dictated By: Emilia Freeman Dictated Date: 05/25/2025 07:21 ET Assigned Physician: Emilia Freeman Reviewed and Electronically Signed By: Emilia Freeman Signed Date: 05/25/2025 07:25 ET Workstation ID: [id number] Transcribed By: Self Edit Transcribed Date: 05/25/2025 07:21 ET Narrative 05/25/2025 7:25 AM EDT EXAM: Left hand x-ray HISTORY: Pain and swelling at fifth metacarpal after a fall. COMPARISON: None FINDINGS: 3 views were performed. No acute fracture detected. No malalignment. Joint spaces are maintained. No destructive bone lesion. Procedure Note Emilia Freeman MD - 05/25/2025 EXAM: Left hand x-ray HISTORY: Pain and swelling at fifth metacarpal after a fall. COMPARISON: None FINDINGS: 3 views were performed. No acute fracture detected. No malalignment. Joint spaces are maintained.No destructive bone lesion. IMPRESSION: No acute fracture or malalignment detected. -------- FINAL REPORT -------- Dictated By: Emilia Freeman Dictated Date: 05/25/2025 07:21 ET Assigned Physician: Emilia Freeman Reviewed and Electronically Signed By: Emilia Freeman Signed Date: 05/25/2025 07:25 ET Workstation ID: [id number] Transcribed By: Self Edit Transcribed Date: 05/25/2025 07:21 ET Daniel Roque NP IMG XR PROCEDURES Final Resul t * (ABNORMAL) Lipid panel with reflex to direct LDL (11/18/2024 4:39 PM EDT) Cholesterol 205(H) 0 - 200 mg/dL LAB CHEMISTRY METHOD 11/18/2024 8:04 PM EDT [facility] Triglycerides 196(H) 0 - 150 mg/dL LAB CHEMISTRY METHOD 11/18/2024 8:04 PM EDT [facility] HDL 51 >=40 mg/dL LAB CHEMISTRY METHOD 11/18/2024 8:04 PM EDT [facility] LDL Calculated 115(H) 0 - 100 mg/dL LAB CHEMISTRY METHOD 11/18/2024 8:04 PM EDT [facility] VLDL Cholesterol Jamaal 39.2 mg/dL LAB CHEMISTRY METHOD 11/18/2024 8:04 PM EDT [facility] Non HDL Chol. (LDL+VLDL) 154(H) <145 mg/dL LAB CHEMISTRY METHOD 11/18/2024 8:04 PM EDT [facility] Chol/HDL Ratio 4.0 0.0 - 4.4 LAB CHEMISTRY METHOD 11/18/2024 8:04 PM EDT [facility] Blood Venous blood specimen / Unknown Venipuncture / Unknown 11/18/2024 4:39 PM EDT 11/18/2024 4:39 PM EDT us Robbie Mckenzie MD LAB BLOOD ORDERABLES Final Resu lt [facility] [address] [place] [address], * (ABNORMAL) Comprehensive metabolic panel (11/18/2024 4:39 PM EDT) Sodium 142 133 - 145 mmol/L LAB CHEMISTRY METHOD 11/18/2024 8:04 PM [facility] Potassium 4.1 3.5 - 5.5 mmol/L LAB CHEMISTRY METHOD 11/18/2024 8:04 PM [facility] Chloride 107 96 - 110 mmol/L LAB CHEMISTRY METHOD 11/18/2024 8:04 PM [facility] CO2 25 21 - 32 mmol/L LAB CHEMISTRY METHOD 11/18/2024 8:04 PM [facility] Anion Gap 10 3 - 11 LAB CHEMISTRY METHOD 11/18/2024 8:04 PM [facility] Glucose 103(H) 70 - 100 mg/dL LAB CHEMISTRY METHOD 11/18/2024 8:04 PM [facility] BUN 12 5 - 25 mg/dL LAB CHEMISTRY METHOD 11/18/2024 8:04 PM [facility] Creatinine 0.83 0.50 - 1.10 mg/dL LAB CHEMISTRY METHOD 11/18/2024 8:04 PM [facility] eGFR 82 >=60 mL/min/1. 73m2 LAB CHEMISTRY METHOD 11/18/2024 8:04 PM [facility] Comment:Calculation based on the Chronic Kidney Disease Epidemiology Collaboration (CKD-EPI) equation refit without adjustment for race. BUN/Creatinine Ratio 14.5 LAB CHEMISTRY METHOD 11/18/2024 8:04 PM [facility] Calcium 9.9 8.5 - 10.5 mg/dL LAB CHEMISTRY METHOD 11/18/2024 8:04 PM [facility] AST (SGOT) 19 10 - 42 unit/L LAB CHEMISTRY METHOD 11/18/2024 8:04 [facility] ALT (SGPT) 20 10 - 60 unit/L LAB CHEMISTRY METHOD 11/18/2024 8:04 PM [facility] Alkaline Phosphatase 115 42 - 121 unit/L LAB CHEMISTRY METHOD 11/18/2024 8:04 PM [facility] Total Protein 7.7 6.0 - 8.0 g/dL LAB CHEMISTRY METHOD 11/18/2024 8:04 PM [facility] Albumin 4.1 3.2 - 5.0 g/dL LAB CHEMISTRY METHOD 11/18/2024 8:04 PM [facility] Total Bilirubin 0.7 0.0 - 1.4 mg/dL LAB CHEMISTRY METHOD 11/18/2024 8:04 PM [facility] Blood Venous blood specimen / Unknown Venipuncture / Unknown 11/18/2024 4:39 PM EDT 11/18/2024 4:39 PM EDT Robbie Mckenzie MD LAB BLOOD ORDERABLES Final Resu lt [facility] [address] [place] [address], * Hepatitis C Screening (02/07/2018) [facility] Hepatitis C Screening abstracted Historical Provider HEALTH MAINTENANCE Final Result from Last 3 Months or Most Recently Relevant to Health Maintenance Insurance [facility] Care Teams Installation Service Representative Relationship Specialty Start Date End Date Robbie Mceknzie MD [address] [place] [address] PCP - General 05/03/09
== END 2025-07-23 16:13 | disposition home or self-care (01) ==
LOC: HO.PMC 16:02
PROVIDERS: PCP Internal Medicine; Visit Provider Nurse Practitioner Family
DX: M54.50 Low back pain, unspecified (principal); G89.29 Other chronic pain; M54.6 Pain in thoracic spine; M47.812 Spondylosis without myelopathy or radiculopathy, cervical region; M47.815 Spondylosis without myelopathy or radiculopathy, thoracolumbar region
CPT/HCPCS: 99214

== ENCOUNTER → 2025-07-23 16:02 | Outpatient (BNVA) | payer OTHER, SELFPAY | PROVIDERS: PCP Internal Medicine; Visit Provider Nurse Practitioner Family | DX: M47.812 Spondylosis without myelopathy or radiculopathy, cervical region (principal); M54.50 Low back pain, unspecified; G89.29 Other chronic pain; M54.6 Pain in thoracic spine; M47.815 Spondylosis without myelopathy or radiculopathy, thoracolumbar region; Z79.899 Other long term (current) drug therapy; Z79.1 Long term (current) use of non-steroidal anti-inflammatories (NSAID) | CPT/HCPCS: 99212 ==

== ENCOUNTER 2025-07-27 16:07 | Outpatient (REF) | payer OTHER, SELFPAY ==
--- NOTE | ~2025-07-27 | XR_ITS ---
EXAMINATION: XR THORACIC SPINE CLINICAL INFORMATION: M54.50 - Low back pain, unspecified COMPARISON: None available. TECHNIQUE: 3 views of the thoracic spine were obtained. FINDINGS: There is a mild levoconvex scoliosis, apex at T12-L1. There is a normal thoracic kyphosis. 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 No definite compression deformity or fracture. No suspicious bone lesion. No subluxations. Mild degenerative disc changes seen throughout. There are surgical clips in the epigastric region. Soft tissues otherwise appear normal. XR/XR thoracic spine 3V IMPRESSION: 1. Mild levoconvex scoliosis. 2. 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 3. Mild degenerative disc disease. Electronically signed by: Koko Ruiz MD 07/27/2025 04:29 PM RHIANNA WINTER
--- OUTSIDE RECORDS SUMMARY | 2025-07-28 01:40 | XMS_ITS | Encounter Summary ---
Author Organization [facility] Prior to 06/20/2024 Address [address] [place] [address] Care Team Providers Care Window Shade Cutter And Mounter Name Role Phone Robbie Mckenzie MD Primary Care Provider [phone] Encounter Details Date Type Department Care Team Description 01/10/2022 Telephone Adult Medicine [address] [address] Perla Buck PA-C Social History Tobacco Use [...] phone call - can be reached at [phone] documented in this encounter Plan of Treatment Not on file documented as of this encounter Visit Diagnoses Not on filedocumented in this encounter Additional Health Concerns Infection Onset Date Last Indicated Resolved Time COVID-19 07/23/2023 07/23/2023 documented as of this encounter Care Teams Window Shade Cutter And Mounter Relationship Specialty Start Date End Date Robbie Mckenzie MD [address] [place] [id number] PCP - General 05/03/09 documented as of this encounter
--- OUTSIDE RECORDS SUMMARY | 2025-07-28 01:40 | XMS_ITS | Encounter Summary ---
Author Organization [facility] Prior to 06/20/2024 Address [address] [facility] [place] [address] Care Team Providers Care Ribbon Tier Name Role Phone Robbie Mckenzie MD Primary Care Provider [phone] Encounter Details Date Type Department Care Team Description 03/01/2022 Release of Information Medical Records [address] [place], [place] [address] [address] Abstract, Provider Social History Tobacco Use Types [...] documented as of this encounter Care Teams Ribbon Tier Relationship Specialty Start Date End Date Robbie Mckenzie MD [address] [place], [place] [phone] PCP - General 05/03/09 documented as of this encounter
--- OUTSIDE RECORDS SUMMARY | 2025-07-28 01:40 | XMS_ITS | Encounter Summary ---
Author Organization [facility] Prior to 06/20/2024 Address [address] [facility] [place] [address] Care Team Providers Care Manager Title Name Role Phone Robbie Mckenzie MD Primary Care Provider [phone] Encounter Details Date Type Department Care Team Description 03/23/2020 Cook Dinner Report Medical Records [address] [place] [id number] Abstract, Provider Social History Tobacco Use Types [...] documented as of this encounter Care Teams Manager Title Relationship Specialty Start Date End Date Robbie Mckenzie MD [address] [place], [place] [phone] PCP - General 05/03/09 documented as of this encounter
--- OUTSIDE RECORDS SUMMARY | 2025-07-28 01:40 | XMS_ITS | Encounter Summary ---
Author Organization [facility] Prior to 06/20/2024 Address [address] [facility] [place] [address] Care Team Providers Care Search Director Name Role Phone Robbie Mckenzie MD Primary Care Provider [phone] Encounter Details Date Type Department Care Team Description 03/16/2023 Dupligraph Operator Report Medical Records [address] [place] [address] Amy Torres NP Social History Tobacco Use [...] documented as of this encounter Care Teams Search Director Relationship Specialty Start Date End Date Robbie Mckenzie MD [address] [place], [place] [phone] PCP - General 05/03/09 documented as of this encounter
--- OUTSIDE RECORDS SUMMARY | 2025-07-28 01:40 | XMS_ITS | Encounter Summary ---
Author Organization [facility] Prior to 06/20/2024 Address [address] [place] [address] Care Team Providers Care Shook Splicer Name Role Phone Robbie Mckenzie MD Primary Care Provider [phone] Encounter Details Date Type Department Care Team Description 08/07/2018 Orders Only Medical Records [address] [place] [address] Ap Barrera MD [address] [place] [address] [address] [place] [address] Social History Tobacco Use Types Packs/Day Years [...] documented as of this encounter Care Teams Shook Splicer Relationship Specialty Start Date End Date Robbie Mckenzie MD [address] [place] [id number] PCP - General 05/03/09 documented as of this encounter
--- OUTSIDE RECORDS SUMMARY | 2025-07-28 01:40 | XMS_ITS | Encounter Summary ---
Author Organization [facility] Prior to 06/20/2024 Address [address] [place] [address] Care Team Providers Care Yard Brakeman Name Role Phone Robbie Mckenzie MD Primary Care Provider [phone] Reason for Visit * Reason Comments E-prescribe Rx Request Encounter Details Date Type Department Care Team Description 10/13/2020 Refill Adult Medicine [address] [address] Natalie Anderson PA E-prescribe Rx Request Social [...] N/A Patients current insurance carrier is: Payor: [employer] / Plan: [employer] / Product Type: MEDICAID RISK documented in this encounter Plan of Treatment Not on file documented as of this encounter Visit Diagnoses Diagnosis Essential hypertension Unspecified essential hypertension documented in this encounter Additional Health Concerns Infection Onset Date Last Indicated Resolved Time COVID-19 07/23/2023 07/23/2023 documented as of this encounter Care Teams Yard Brakeman Relationship Specialty Start Date End Date Robbie Mckenzie MD [address] [place] [id number] PCP - General 05/03/09 documented as of this encounter
--- OUTSIDE RECORDS SUMMARY | 2025-07-28 01:40 | XMS_ITS | Clinical Summary ---
Author Organization [address] Address [address] [place], [place] [address] [address] Phone Care Team Providers Care Hand Gluer And Slicer Name Role Phone Robbie Mckenzie MD Primary Care Provider [phone] Allergies No known active allergies Medications celecoxib [...] Description 05/26/2025 Results [facility] - [address] [place] [address] Claudio Parra NP 05/22/2025 6:00 PM EDT Office Visit Walk-In Clinic - [address] [place] [address] Daniel Roque NP Hand pain, left (Primary Dx); Acute pain of left knee 05/22/2025 5:56 PM EDT - 05/22/2025 11:59 PM EDT Hospital Encounter [facility] - [facility] [address] [address] Hand pain, left Discharge Disposition: Home or Self Care 05/22/2025 5:56 PM EDT - 05/22/2025 11:59 PM EDT Hospital Encounter Xray - [facility] [address] [place] [address] Acute pain of left knee Discharge Disposition: Home or Self Care 05/22/2025 Nurse Triage Adult Medicine [address] [phone] Robbie Mckenzie MD from Last 3 Months [...] care for your loved ones. For example, director maternal child or elderly care for an older adult? [...] on file Sexual Orientation Not on file Last Filed Vital Signs Vital Sign Reading [...] 3:00 PM EST Office Visit Adult Medicine [address] [address] Robbie Mckenzie MD [address] [place] [address] 09/02/2025 3:30 PM EST Medication Management Adult Medicine [address] [phone] Olya Peralta, PharmD [address] [place] [address] [phone] Health Maintenance Due Date Last Done Comments [...] Signed Date: 05/25/2025 07:29 ET Workstation ID: [id number] Transcribed By: Self Edit Transcribed Date: 05/25/2025 [...] Signed Date: 05/25/2025 07:29 ET Workstation ID: [id number] Transcribed By: Self Edit Transcribed Date: 05/25/2025 [...] Signed Date: 05/25/2025 07:25 ET Workstation ID: [id number] Transcribed By: Self Edit Transcribed Date: 05/25/2025 [...] Signed Date: 05/25/2025 07:25 ET Workstation ID: [id number] Transcribed By: Self Edit Transcribed Date: 05/25/2025 07:21 ET Daniel Roque NP IMG XR PROCEDURES Final Resul t * (ABNORMAL) Lipid panel with reflex to direct LDL (11/18/2024 4:39 PM EDT) Cholesterol 205(H) 0 - 200 mg/dL LAB CHEMISTRY METHOD 11/18/2024 8:[address] [facility] Triglycerides 196(H) 0 - 150 mg/dL LAB CHEMISTRY METHOD 11/18/2024 8:[address] [facility] HDL 51 >=40 mg/dL LAB CHEMISTRY METHOD 11/18/2024 8:[address] [facility] LDL Calculated 115(H) 0 - 100 mg/dL LAB CHEMISTRY METHOD 11/18/2024 8:[address] [facility] VLDL Cholesterol Jamaal 39.2 mg/dL LAB CHEMISTRY METHOD 11/18/2024 8:[address] [facility] Non HDL Chol. (LDL+VLDL) 154(H) <145 mg/dL LAB CHEMISTRY METHOD 11/18/2024 8:[address] [facility] Chol/HDL Ratio 4.0 0.0 - 4.4 LAB CHEMISTRY METHOD 11/18/2024 8:[address] [facility] Blood Venous blood specimen / Unknown Venipuncture / Unknown 11/18/2024 4:39 PM EDT 11/18/2024 4:39 PM EDT us Robbie Mckenzie MD LAB BLOOD ORDERABLES Final Resu lt [facility] [address] [place] [address], * (ABNORMAL) Comprehensive metabolic panel (11/18/2024 4:39 PM EDT) Sodium 142 133 - 145 mmol/L LAB CHEMISTRY METHOD 11/18/2024 8:04 PM [facility] Potassium 4.1 3.5 - 5.5 mmol/L LAB CHEMISTRY METHOD 11/18/2024 8:04 PM [facility] Chloride 107 96 - 110 mmol/L LAB CHEMISTRY METHOD 11/18/2024 8:04 PM [facility] CO2 25 21 - 32 mmol/L LAB CHEMISTRY METHOD 11/18/2024 8:04 PM [facility] Anion Gap 10 3 - 11 LAB CHEMISTRY METHOD [facility] Glucose 103(H) 70 - 100 mg/dL LAB CHEMISTRY METHOD 11/18/2024 8:04 PM [facility] BUN 12 5 - 25 mg/dL LAB CHEMISTRY METHOD 11/18/2024 8:04 PM [facility] Creatinine 0.83 0.50 - 1.10 mg/dL LAB CHEMISTRY METHOD 11/18/2024 8:04 PM [facility] eGFR 82 >=60 mL/min/1. 73m2 LAB CHEMISTRY METHOD 11/18/2024 8:04 PM [facility] Comment:Calculation based on the Chronic Kidney Disease Epidemiology Collaboration (CKD-EPI) equation refit without adjustment for race. BUN/Creatinine Ratio 14.5 LAB CHEMISTRY METHOD 11/18/2024 8:04 PM [facility] Calcium 9.9 8.5 - 10.5 mg/dL LAB CHEMISTRY METHOD 11/18/2024 8:04 PM [facility] AST (SGOT) 19 10 - 42 unit/L LAB CHEMISTRY METHOD 11/18/2024 8:04 PM [facility] ALT (SGPT) 20 10 - 60 unit/L LAB CHEMISTRY METHOD 11/18/2024 8:04 PM [facility] Alkaline Phosphatase 115 42 - 121 unit/L LAB CHEMISTRY METHOD 11/18/2024 8:04 PM [facility] Total Protein 7.7 6.0 - 8.0 g/dL LAB CHEMISTRY METHOD 11/18/2024 8:04 PM [facility] Albumin 4.1 3.2 - 5.0 g/dL LAB CHEMISTRY METHOD 11/18/2024 8:04 PM [facility] Total Bilirubin 0.7 0.0 - 1.4 mg/dL LAB CHEMISTRY METHOD 11/18/2024 8:04 PM [facility] Blood Venous blood specimen / Unknown Venipuncture / Unknown 11/18/2024 4:39 PM EDT 11/18/2024 4:39 PM EDT us Robbie Mckenzie MD LAB BLOOD ORDERABLES Final Resu lt [facility] [address] [place] [address], * Hepatitis C Screening (02/07/2018) [facility] Hepatitis C Screening abstracted Historical Provider HEALTH MAINTENANCE Final Result from Last 3 Months or Most Recently Relevant to Health Maintenance Insurance [facility] [employer] Care Teams Hand Gluer And Slicer Relationship Specialty Start Date End Date Robbie Mckenzie MD [address] [place] [address] PCP - General 05/03/09
--- OUTSIDE RECORDS SUMMARY | 2025-07-28 01:40 | XMS_ITS | Encounter Summary ---
Author Organization [facility] Prior to 06/20/2024 Address [address] [place] [address] Care Team Providers Care Senior Application Security Consultant Name Role Phone Robbie Mckenzie MD Primary Care Provider [phone] Reason for Visit * Reason Onset Date Comments Mychart Rx Refill 01/18/2022 Encounter Details Date Type Department Care Team Description 01/18/2022 Refill Adult Medicine [address] [address] Perla Buck, [place] Mychart Rx Refill Social History Tobacco Use Types Packs/Day Years [...] Telephone Encounter - Meli Perez M.A. - 01/19/2022 9:14 AM EDT Lab Results Component Value Date NA 139 12/27/2021 K 4.1 12/27/2021 CO2 26 12/27/2021 CL 106 12/27/2021 BUN 16 12/27/2021 CREAT 1.00 12/27/2021 GLU 108 12/27/2021 CA 9.1 12/27/2021 GFR 58 12/27/2021 Last appt with pcp 12/27/21 documented in this encounter Plan of Treatment Not on file documented as of this encounter Visit Diagnoses Not on filedocumented in this encounter Additional Health Concerns Infection Onset Date Last Indicated Resolved Time COVID-19 07/23/2023 07/23/2023 documented as of this encounter Care Teams Senior Application Security Consultant Relationship Specialty Start Date End Date Robbie Mckenzie MD [address] [place] [id number] PCP - General 05/03/09 documented as of this encounter
--- OUTSIDE RECORDS SUMMARY | 2025-07-28 01:40 | XMS_ITS | Encounter Summary ---
Author Organization [facility] Prior to 06/20/[address] [facility] [place] [address] Care Team Providers Care Print Project Manager Name Role Phone Robbie Mckenzie MD Primary Care Provider [phone] Encounter Details Date Type Department Care Team Description 08/21/2018 Hospital Medical Records [address] [place] [address] Ap Barrera MD [address] [place] [address] [address] [place] [address] Social History Tobacco Use Types Packs/Day Years [...] documented as of this encounter Care Teams Print Project Manager Relationship Specialty Start Date End Date Robbie Mckenzie MD [address] [place], [place] [phone] PCP - General 05/03/09 documented as of this encounter
--- OUTSIDE RECORDS SUMMARY | 2025-07-28 01:40 | XMS_ITS | Encounter Summary ---
Author Organization [facility] Prior to 06/20/2024 Address [address] [place] [address] Care Team Providers Care Institutional Research Director Name Role Phone Robbie Mckenzie MD Primary Care Provider [phone] Reason for Referral * Radiology Services (Routine) - Closed Specialty Diagnoses / Procedures Referred By Whitney jeffers Referred To Contact Radiology Diagnoses Lumbar degenerative disc disease Procedures MRI OF LUMBAR SPINE NO CONTRAST Perla Buck PA-C [address] [place] [address] [facility]/[address] [address] Referral ID Status Reason Start Date Expiration Date Visits Re quested Visits Authorized [id number] Closed 12/28/2021 1 1 Reason for Visit * Reason Onset Date Comments Ripsawyer Feedback 12/26/2021 Neurosurgery Encounter Details Date Type Department Care Team Description 12/26/2021 Telephone Adult Medicine South [address] [address] Perla Buck PA-C Ripsawyer Feedback (Neurosurgery) Social History Tobacco Use Types Packs/Day Years [...] encounter Miscellaneous Notes * Telephone Encounter - Perla Buck PA-C - 12/28/2021 7:51 AM EDT Order for MRI placed. * Telephone Encounter - Perla Iqbal - 12/26/2021 2:27 PM EDT Perla, You are referring this patient to neurosurgery for lumbar and cervical radiculopathy. According to our records, the patient has not completed an MRI Lumbar spine or MRI Cervical Sprine. Neurosurgeonsusually request a recent MRI or related imaging within the past six months. ? Please review and order updated imaging if appropriate so that FLIGHT ENGINEER INSPECTOR staff may complete referral to Neurosurgery. ? Thank you, Perla Annalisa Referrals Department documented in this encounter Plan of Treatment Not on file documented as of this encounter Visit Diagnoses Diagnosis Lumbar degenerative disc disease- Primary Degeneration of lumbar or lumbosacral intervertebral disc documented in this encounter Additional Health Concerns Infection Onset Date Last Indicated Resolved Time COVID-19 07/23/2023 07/23/2023 documented as of this encounter Care Teams Institutional Research Director Relationship Specialty Start Date End Date Robbie Mckenzie MD [address] [place] [id number] PCP - General 05/03/09 documented as of this encounter
--- OUTSIDE RECORDS SUMMARY | 2025-07-28 01:40 | XMS_ITS | Encounter Summary ---
Author Organization [facility] Prior to 06/20/2024 Address [address] [place] [address] Care Team Providers Care Punchboard Inserter Name Role Phone Robbie Mckenzie MD Primary Care Provider [phone] Reason for Visit * Reason Onset Date Comments REFERRAL 11/23/2016 Gastro Encounter Details Date Type Department Care Team Description 11/23/2016 Telephone Gastroenterology - [address] [address] Carli Jha MD REFERRAL (Gastro) Social History Tobacco Use Types Packs/Day Years [...] encounter Miscellaneous Notes * Telephone Encounter - Najma Scott - 11/23/2016 9:26 AM EDT 3 attempts have been made ( 2 calls and 1 letter) In an effort to schedule colonoscopy with no response. GI dept will take no further action on this referral documented in this encounter Plan of Treatment Not on file documented as of this encounter Visit Diagnoses Not on filedocumented in this encounter Additional Health Concerns Infection Onset Date Last Indicated Resolved Time COVID-19 07/23/2023 07/23/2023 documented as of this encounter Care Teams Punchboard Inserter Relationship Specialty Start Date End Date Robbie Mckenzie MD [address] [place] [id number] PCP - General 05/03/09 documented as of this encounter
--- OUTSIDE RECORDS SUMMARY | 2025-07-28 01:40 | XMS_ITS | Encounter Summary ---
Author Organization [facility] Prior to 06/20/2024 Address [address] [facility] [place] [address] Care Team Providers Care Electroplater Apprentice Name Role Phone Robbie Mckenzie MD Primary Care Provider [phone] Encounter Details Date Type Department Care Team Description 11/22/2023 Release of Information Medical Records [address] [place], [place] [address] [address] Abstract, Provider Social History Tobacco Use Types [...] documented as of this encounter Care Teams Electroplater Apprentice Relationship Specialty Start Date End Date Robbie Mckenzie MD [address] [place], [place] [phone] PCP - General 05/03/09 documented as of this encounter
--- OUTSIDE RECORDS SUMMARY | 2025-07-28 01:40 | XMS_ITS | Encounter Summary ---
Author Organization [facility] Prior to 06/20/2024 Address [address] [facility] [place] [address] Care Team Providers Care Precise Winder Name Role Phone Robbie Mckenzie MD Primary Care Provider [phone] Encounter Details Date Type Department Care Team Description 09/11/2018 Release of Information Medical Records [address] [place], [place] [address] [address] Abstract, Provider Social History Tobacco Use Types [...] documented as of this encounter Care Teams Precise Winder Relationship Specialty Start Date End Date Robbie Mckenzie MD [address] [place], [place] [phone] PCP - General 05/03/09 documented as of this encounter
--- OUTSIDE RECORDS SUMMARY | 2025-07-28 01:40 | XMS_ITS | Encounter Summary ---
Author Organization [facility] Prior to 06/20/2024 Address [address] [place] [address] Care Team Providers Care Fuse Coiler Name Role Phone Robbie Mckenzie MD Primary Care Provider [phone] Encounter Details Date Type Department Care Team Description 11/06/2016 Refill Adult Medicine [facility] [address] [place], [place] [phone] Robbie Mckenzie MD [address] [place] [address] Social History Tobacco Use Types Packs/Day Years Used Date Smoking Tobacco: Every Day Cigarettes 5 Smokeless Tobacco: Current Alcohol Use Standard Drinks/Week Comments Not Asked 0 (1 standard drink = 0.6 oz pur e alcohol) occ Sex Assigned at Date Recorded Not on file Job Start Date Occupation Industry Not on file Not on file Not on file documented as of this encounter Miscellaneous Notes * Telephone Encounter - Stella Delacruz M.A. - 11/07/2016 10:11 AM EDT Pt needs appt-msg sent * Telephone Encounter - Stella Delacruz M.A. - 11/07/2016 10:10 AM EDTFrom: James Petty To: Robbie Mckenzie MD Sent: 11/06/2016 8:37 PM EDT Subject: Medication Renewal Request Original authorizing provider: Robbie Mckenzie MD James Petty would like a refill of the following medications: lisinopril (PRINIVIL,ZESTRIL) 40 MG tablet [Robbie Mckenzie MD] clonidine (CATAPRES) 0.2 MG tablet [Robbie Mckenzie MD] triamterene-hydrochlorothiazide (MAXZIDE-25) 37.5-25 MG per tablet [Robbie Mckenzie MD] Preferred pharmacy: [address] Comment: documented in this encounter Plan of Treatment Not on file documented as of this encounter Visit Diagnoses Diagnosis Essential hypertension Unspecified essential hypertension documented in this encounter Additional Health Concerns Infection Onset Date Last Indicated Resolved Time COVID-19 07/23/2023 07/23/2023 documented as of this encounter Care Teams Fuse Coiler Relationship Specialty Start Date End Date Robbie Mckenzie MD [address] [place] [id number] PCP - General 05/03/09 documented as of this encounter
== END 2025-07-27 16:08 | disposition home or self-care (01) ==
LOC: HO.XRAY 16:07
PROVIDERS: PCP Internal Medicine; Visit Provider Nurse Practitioner Family
DX: M54.6 Pain in thoracic spine (principal); G89.29 Other chronic pain; M54.50 Low back pain, unspecified
CPT/HCPCS: 72072

== ENCOUNTER → 2025-07-27 16:10 | Outpatient (BNV) | payer OTHER, SELFPAY | PROVIDERS: PCP Internal Medicine; Visit Provider Radiology Diagnostic Radiology | DX: M51.04 Intervertebral disc disorders with myelopathy, thoracic region (principal); M41.84 Other forms of scoliosis, thoracic region | CPT/HCPCS: 72072 ==